=== PATIENT | male | born 1935 | race American Indian/Alaskan Native ===

== ENCOUNTER 2016-06-22 13:24 | Emergency (ER) | payer MEDICARE ==
[2016-06-22] MEDS ORDERED: DUONEB 0.5 MG-3 MG/3 ML SOLN IH ONE (13:41)
[2016-06-22 14:33] LABS: Basophils % (Auto) 0.4 % (0.0-1.8); Eosinophils % (Auto) 1.6 % (0.0-4.3); Hematocrit 37.9 % (35.5-45.6); Hemoglobin 12.2 gm/dl (11.8-15.2); Mean Corpuscular HGB Conc 32 % (32-34); Mean Corpuscular Hemoglobin 29 pg (28-32); Mean Corpuscular Volume 90 fl (84-94); Platelet Count 188 K/mm3 (140-440); Red Blood Count 4.22 M/mm3 (3.65-5.03); White Blood Count 5.1 K/mm3 (4.5-11.0)
--- NOTE | 2016-06-22 14:34 | XRay Report ---
AP CHEST: HISTORY: Difficulty in breathing Severe emphysematous changes are appreciated. There is no evidence for infiltrate, pleural effusion or pneumothorax. Normal heart size and pulmonary vascularity. The bony thorax is intact. IMPRESSION: Severe emphysema.
[2016-06-22 14:47] LABS: BUN/Creatinine Ratio 12.66; Calcium 9.7 mg/dL (8.4-10.2); Chloride 92.3 mmol/L (98-107); Potassium 4.6 mmol/L (3.6-5.0)
--- NOTE | 2016-06-22 15:02 | Emergency Department Report ---
ED Shortness of Breath HPI - General Chief Complaint: Dyspnea/Respdistress Stated Complaint: TROUBLE BREATHING Time Seen by Provider: 06/22/16 14:47 Source: patient, EMS Mode of arrival: Stretcher Limitations: No Limitations - History of Present Illness MD Complaint: shortness of breath -: Gradual Severity: mild Consistency: constant Improves With: oxygen Worsens With: nothing Known History Of: COPD, asthma Associated Symptoms: cough Treatments Prior to Arrival: oxygen - Related Data Home Oxygen Therapy: Yes Home Oxygen Amount: 3 Liters Home Medications Medication Instructions Recorded Confirmed Last Taken Aspirin EC [Aspirin Enteric Coated 81 mg PO QDAY 08/13/14 09/18/15 09/18/15 TAB] AtorvaSTATin [Lipitor] 20 mg PO DAILY 08/13/14 09/18/15 09/18/15 Cholecalciferol Vit D3 [Vitamin D3] 1,000 unit PO QDAY 08/13/14 09/18/15 Ipratropium/Albuterol Sulfate 1 spray IH QID 08/13/14 09/18/15 09/18/15 [Combivent Respimat] Levothyroxine [Synthroid] 100 mcg PO QAM 08/13/14 09/18/15 09/18/15 Tiotropium [Spiriva] 18 mcg IH QDAY 08/13/14 09/18/15 09/18/15 hydrALAZINE [Apresoline TAB] 25 mg PO Q12H 08/13/14 09/18/15 09/18/15 Allergies Allergy/AdvReac Type Severity Reaction Status Date / Time No Known Allergies Allergy Verified 03/12/14 15:24 ED Review of Systems ROS: Stated complaint: TROUBLE BREATHING Other details as noted in HPI Constitutional: denies: chills, fever Eyes: denies: eye pain, eye discharge, vision change ENT: denies: ear pain, throat pain Respiratory: denies: cough, shortness of breath, wheezing Cardiovascular: denies: chest pain, palpitations Endocrine: no symptoms reported Gastrointestinal: denies: abdominal pain, nausea, diarrhea Genitourinary: denies: urgency, dysuria Musculoskeletal: denies: back pain, joint swelling, arthralgia Skin: denies: rash, lesions Neurological: denies: headache, weakness, paresthesias Psychiatric: denies: anxiety, depression Hematological/Lymphatic: denies: easy bleeding, easy bruising ED Past Medical Hx - Past Medical History Previous Medical History?: Yes Hx Hypertension: Yes Hx Heart Attack/AMI: Yes Hx COPD: Yes (Home O2 3.5L @ all times.) Hx HIV: No Additional medical history: hyperthyroid - Surgical History Past Surgical History?: Yes Additional Surgical History: leg, prostate. colon - Social History Smoking Status: Former Smoker Substance Use Type: None - Medications Home Medications: Home Medications Medication Instructions Recorded Confirmed Last Taken Type Aspirin EC [Aspirin Enteric Coated 81 mg PO QDAY 08/13/14 09/18/15 09/18/15 History TAB] AtorvaSTATin [Lipitor] 20 mg PO DAILY 08/13/14 09/18/15 09/18/15 History Cholecalciferol Vit D3 [Vitamin D3] 1,000 unit PO QDAY 08/13/14 09/18/15 History Ipratropium/Albuterol Sulfate 1 spray IH QID 08/13/14 09/18/15 09/18/15 History [Combivent Respimat] Levothyroxine [Synthroid] 100 mcg PO QAM 08/13/14 09/18/15 09/18/15 History Tiotropium [Spiriva] 18 mcg IH QDAY 08/13/14 09/18/15 09/18/15 History hydrALAZINE [Apresoline TAB] 25 mg PO Q12H 08/13/14 09/18/15 09/18/15 History ED Physical Exam - General Limitations: No Limitations General appearance: alert, in no apparent distress, cachectic - Head Head exam: Present: atraumatic, normocephalic - Eye Eye exam: Present: normal appearance - ENT ENT exam: Present: mucous membranes dry - Neck Neck exam: Present: normal inspection - Respiratory Respiratory exam: Present: rhonchi, decreased breath sounds, prolonged expiratory. Absent: respiratory distress, wheezes, rales, chest wall tenderness , accessory muscle use - Cardiovascular Cardiovascular Exam: Present: regular rate, normal rhythm. Absent: systolic murmur, diastolic murmur, rubs, gallop - GI/Abdominal GI/Abdominal exam: Present: soft, normal bowel sounds - Rectal Rectal exam: Present: deferred - Extremities Exam Extremities exam: Present: normal inspection - Back Exam Back exam: Present: normal inspection - Neurological Exam Neurological exam: Present: alert, oriented X3 - Psychiatric Psychiatric exam: Present: normal affect, normal mood - Skin Skin exam: Present: warm, dry, intact, normal color. Absent: rash ED Course Vital Signs 06/22/16 13:40 Temperature 98.1 F Pulse Rate 62 Respiratory 22 Rate Blood Pressure 170/85 [Left] O2 Sat by Pulse 100 Oximetry ED Medical Decision Making - Lab Data Result diagrams: 06/22/16 14:16 06/22/16 14:16 - Radiology Data Radiology results: report reviewed, image reviewed - Medical Decision Making patient doing well, cxr negative , labs negative, improving with nebs here in the ER, discuss and offered admission but he wants to go home, CXR : emphysema but no pneumonia, Critical care attestation.: If time is entered above; I have spent that time in minutes in the direct care of this critically ill patient, excluding procedure time. ED Disposition Clinical Impression: COPD exacerbation Disposition: DISCHARGED TO HOME OR SELFCARE Is pt being admited?: No Does the pt Need Aspirin: No Condition: Good Instructions: Chronic Obstructive Pulmonary Disease (ED) Referrals: PRIMARY CARE [Primary Care Provider] - 3-5 Days Time of Disposition: 15:02
[2016-06-22 17:28] VITALS: BP 105/63
== END 2016-06-22 20:10 | disposition home or self-care (01) ==
LOC: ED 13:24
DX: J44.1 Chronic obstructive pulmonary disease with (acute) exacerbation (principal); I10 Essential (primary) hypertension; I25.2 Old myocardial infarction; E05.90 Thyrotoxicosis, unspecified without thyrotoxic crisis or storm; Z87.891 Personal history of nicotine dependence; Z79.82 Long term (current) use of aspirin
CPT/HCPCS: 36415; 71010; 80048; 85025; 94640